=== PATIENT | male | born 1950 | race Hispanic/Latino ===

== ENCOUNTER 2021-10-12 17:14 | Inpatient (IN) | payer OTHER ==
[~2021-10-12] VITALS: Ht 152.4 cm; Wt 59.3 kg
[2021-10-12] MEDS ORDERED: 0.9%NACL 1000ML 1,000 ML IV ONE ×2 (17:30→18:30)
[2021-10-12 17:51] LABS: BASOPHILS % (AUTO) 0.2 % (0.0-5.0); HEMATOCRIT 40.8 % (42-54); LYMPHOCYTES % (AUTO) 3.7 % (21.0-51.0); MEAN CORPUSCULAR HEMOGLOBIN 31.4 pg (27.0-33.0); MEAN CORPUSCULAR HGB CONC 32.6 g/dL (32.0-36.0); MEAN CORPUSCULAR VOLUME 96.2 fL (79-99); MONOCYTES % (AUTO) 2.5 % (3.0-13.0); NEUTROPHILS % (AUTO) 93.2 % (40.0-77.0); PLATELET COUNT (AUTO) 205 K/uL (130-400); RED BLOOD CELL COUNT(AUTO) 4.24 MIL/uL (4.50-6.20); RED CELL DISTRIBUTION WIDTH 12.9 % (11.0-15.5); WHITE BLOOD COUNT (AUTO) 18.2 K/uL (4.8-10.8)
[2021-10-12 18:01] LABS: CREATININE 1.3 mg/dL (0.5-1.5); POTASSIUM 3.7 mmol/L (3.5-5.1)
[2021-10-12 18:05] LABS: ALBUMIN 3.2 g/dL (3.5-5.0); BILIRUBIN,TOTAL 0.6 mg/dL (0.2-1.0); TOTAL PROTEIN, SERUM 6.8 g/dL (6.0-8.3)
[2021-10-12 18:30] LABS: APPEARANCE,URINE Turbid (CLEAR); BILIRUBIN,URINE Small (NEGATIVE); COLOR,URINE Dark Yellow (YELLOW); GLUCOSE, URINE (UA) Negative (NEGATIVE); KETONES,URINE Trace mg/dL (NEGATIVE); LEUKOCYTE ESTERASE ,URINE Large (NEGATIVE); NITRATE,URINE Negative (NEGATIVE); OCCULT BLOOD,URINE Large (NEGATIVE); PROTEIN,URINE POS 1+ mg/dL (NEGATIVE)
[2021-10-12] MEDS ORDERED: ZOSYN 3.375GM +NS 50ML IV SCH (18:30)
[2021-10-12 18:45] LABS: BACTERIA,URINE Many /HPF (None Seen)
[2021-10-12 18:47] LABS: SQUAMOUS EPITHELIAL CELL,UR None Seen /HPF (0-2)
[2021-10-12] MEDS ORDERED: 0.9%NACL 50ML 50 ML IV ONE (18:49)
[2021-10-12 20:21] LABS: MAGNESIUM 1.8 mg/dL (1.80-2.40)
[2021-10-12] MEDS ORDERED: ACETAMINOPHEN 325 MG TAB PO PRN ×2 (20:30)
[2021-10-12] MEDS: 0.9%NACL 1000ML 1,000 ML IV SCH ×2 (20:30→21:31)
[2021-10-12] MEDS ORDERED: ONDANSETRON 4MG INJ IV PRN (20:30)
[2021-10-12] MEDS ORDERED: RENOVITE PO (20:38)
[2021-10-12] MEDS ORDERED: DIVA-76 PO (20:42)
[2021-10-12 20:46] LABS: INR 1.19 (0.85-1.15); PROTHROMBIN TIME 12.8 SEC (9.6-11.6)
[2021-10-12 20:47] LABS: PARTIAL THROMBOPLASTIN TIME 23.7 SEC (26.3-35.5)
[2021-10-12] MEDS ORDERED: SERTRALINE (20:47)
[2021-10-12] MEDS ORDERED: QUETIAPINE 100 MG (20:47)
[2021-10-12] MEDS ORDERED: TRAZADONE 100 MG (20:47)
[2021-10-12] MEDS ORDERED: DONEPEZIL 10 MG (20:48)
[2021-10-12] MEDS ORDERED: ATORVASTATIN 20 MG (20:49)
[2021-10-12] MEDS ORDERED: MEMANTINE 10 MG (20:49)
[2021-10-12] MEDS ORDERED: LEVO100C4 PO (20:51)
[2021-10-12] MEDS ORDERED: LISI1TAB51 PO (20:52)
[2021-10-12] MEDS: FAMOTIDINE 20MG VIAL IV SCH (21:00)
[2021-10-12] MEDS ORDERED: NOREPINEPHRIN 4MG/NS 250ML 250 ML IV ONE (21:08)
[2021-10-12] MEDS ORDERED: NACL 0.9% IV PRN (21:30)
[2021-10-12] MEDS ORDERED: EPINEPHRINE IV PRN (21:30)
[2021-10-12] MEDS ORDERED: NOREPINEPHRIN 4MG/NS 250ML 250 ML IV SCH (22:00)
[2021-10-13] VITALS (26 sets, daily range): BP systolic 83–119; BP diastolic 38–98
[2021-10-13] MEDS: MORPHINE 2 MG SYG IV PRN ×2 (01:37→05:24)
[2021-10-13] MEDS: ZOSYN 3.375GM+NS 50ML 50 ML IV SCH ×2 (02:30→10:46)
[2021-10-13] MEDS: 0.9%NACL 1000ML 1,000 ML IV SCH ×3 (03:10→10:43)
[2021-10-13 07:36] LABS: BASOPHILS % (AUTO) 0.2 % (0.0-5.0); HEMATOCRIT 37.6 % (42-54); LYMPHOCYTES % (AUTO) 2.4 % (21.0-51.0); MEAN CORPUSCULAR HEMOGLOBIN 31.3 pg (27.0-33.0); MEAN CORPUSCULAR VOLUME 94.9 fL (79-99); MONOCYTES % (AUTO) 4.2 % (3.0-13.0); NEUTROPHILS % (AUTO) 92.4 % (40.0-77.0); PLATELET COUNT (AUTO) 187 K/uL (130-400); RED BLOOD CELL COUNT(AUTO) 3.96 MIL/uL (4.50-6.20); RED CELL DISTRIBUTION WIDTH 13.3 % (11.0-15.5)
[2021-10-13 07:38] LABS: WHITE BLOOD COUNT (AUTO) 33.6 K/uL (4.8-10.8)
[2021-10-13 07:49] LABS: ALBUMIN 2.7 g/dL (3.5-5.0); BILIRUBIN,TOTAL 0.5 mg/dL (0.2-1.0); CREATININE 1.1 mg/dL (0.5-1.5); POTASSIUM 3.6 mmol/L (3.5-5.1); TOTAL PROTEIN, SERUM 6.1 g/dL (6.0-8.3)
[2021-10-13 08:22] LABS: BAND NEUTROPHILS % (MANUAL) 10 % (0-2); LYMPHOCYTES % (MANUAL) 5 % (22-44); MAN.DIFF COMMENT-IMPRESSION MANUAL DIFFERENTIAL; MONOCYTES % (MANUAL) 4 % (2-9); PLATELET MORPHOLOGY COMMENT ADEQUATE; SEGMENTED NEUTROPHILS % 81 % (40-70)
[2021-10-13 08:44] LABS: ERYTHROCYTE SEDIMENTATION RATE 9 MM/HR (0-20)
[2021-10-13] MEDS: FAMOTIDINE 20MG VIAL IV SCH (08:55)
[2021-10-13] MEDS ORDERED: LACTATED RINGERS 1000ML IV SCH (16:00)
[2021-10-13] MEDS: MEROPENEM 1 GM VIAL IVP SCH (16:55)
[2021-10-13] MEDS ORDERED: LIDOCAINE HCL-MPF 1% 2ML VIAL IV PRN (19:00)
[2021-10-13] MEDS ORDERED: POTASSIUM CHLORIDE 20MEQ/100ML 100 ML IV PRN (19:00)
[2021-10-13] MEDS ORDERED: KCL 20 MEQ ERTAB PO PRN (19:00)
[2021-10-13] MEDS: LACTATED RINGERS 1000ML 1,000 ML IV SCH ×2 (19:57→22:42)
[2021-10-13] MEDS: TRAZODONE HCL 100 MG TABLET PO SCH (20:39)
[2021-10-13] MEDS ORDERED: DiphenhydrAMINE HCL 50 MG/ML VIAL IM ONE (22:00)
[2021-10-13] MEDS ORDERED: DiphenhydrAMINE HCL 50 MG/ML VIAL ONE (23:24)
[2021-10-14] VITALS (76 sets, daily range): BP systolic 80–134; BP diastolic 31–72
[2021-10-14] MEDS: MEROPENEM 1 GM VIAL IVP SCH ×2 (00:03→07:55)
[2021-10-14 04:07] LABS: BASOPHILS % (AUTO) 0.1 % (0.0-5.0); EOSINOPHILS % (AUTO) 0.1 % (0.0-8.0); HEMATOCRIT 29.2 % (42-54); LYMPHOCYTES % (AUTO) 8.1 % (21.0-51.0); MEAN CORPUSCULAR HEMOGLOBIN 31.3 pg (27.0-33.0); MEAN CORPUSCULAR HGB CONC 32.9 g/dL (32.0-36.0); MEAN CORPUSCULAR VOLUME 95.1 fL (79-99); MONOCYTES % (AUTO) 4.2 % (3.0-13.0); NEUTROPHILS % (AUTO) 86.4 % (40.0-77.0); PLATELET COUNT (AUTO) 116 K/uL (130-400); RED BLOOD CELL COUNT(AUTO) 3.07 MIL/uL (4.50-6.20); RED CELL DISTRIBUTION WIDTH 13.3 % (11.0-15.5); WHITE BLOOD COUNT (AUTO) 14.8 K/uL (4.8-10.8)
[2021-10-14 04:27] LABS: ALBUMIN 2.1 g/dL (3.5-5.0); BILIRUBIN,TOTAL 0.3 mg/dL (0.2-1.0); CREATININE 0.8 mg/dL (0.5-1.5); MAGNESIUM 1.6 mg/dL (1.80-2.40); PHOSPHORUS 1.9 mg/dL (2.5-4.9); POTASSIUM 3.1 mmol/L (3.5-5.1); TOTAL PROTEIN, SERUM 5.2 g/dL (6.0-8.3)
[2021-10-14] MEDS: LACTATED RINGERS 1000ML 1,000 ML IV SCH ×3 (05:36→18:09)
[2021-10-14] MEDS: MIDODRINE HCL 5 MG TABLET PO SCH ×3 (05:36→21:44)
[2021-10-14] MEDS: POTASSIUM CHLORIDE 10% ELIXIR 20 MEQ/15 ML UDCUP PO PRN ×2 (05:36→10:59)
[2021-10-14] MEDS ORDERED: FAMOTIDINE 20MG TAB ONE (07:45)
[2021-10-14] MEDS: ENOXAPARIN SODIUM 40 MG/0.4 ML SYRINGE SQ SCH (07:54)
[2021-10-14] MEDS: FAMOTIDINE 20MG VIAL IV SCH (07:55)
[2021-10-14] MEDS: MAGNESIUM 2GM PREMIX 50ML 50 ML IV PRN (08:12)
[2021-10-14] MEDS ORDERED: QUET100T34 PO (10:17)
[2021-10-14] MEDS ORDERED: SERT-439 PO (10:17)
[2021-10-14] MEDS ORDERED: FOLI0.8T43 PO (10:17)
[2021-10-14] MEDS ORDERED: ATOR20TA65 PO (10:17)
[2021-10-14] MEDS ORDERED: DONE10TA43 PO (10:17)
[2021-10-14] MEDS ORDERED: MEMA10TA55 PO (10:17)
[2021-10-14] MEDS: QUETIAPINE FUMARATE 100 MG TAB PO SCH ×2 (10:36→20:22)
[2021-10-14] MEDS: LEVOTHYROXINE 100 MCG TABLET PO SCH (11:00)
[2021-10-14] MEDS: Vitamin B Complex/Vit C/Folic Acid PO SCH (11:00)
[2021-10-14] MEDS: DIVALPROEX SODIUM 250 MG TABLET.DR PO SCH (11:00)
[2021-10-14] MEDS: MEMANTINE HCL 5 MG TABLET PO SCH ×2 (11:01→20:22)
[2021-10-14] MEDS: SERTRALINE HCL 50 MG TABLET PO SCH (11:05)
[2021-10-14] MEDS: CEFTRIAXONE 1G VIAL IVP SCH (15:25)
[2021-10-14] MEDS: DONEPEZIL HCL 5 MG TAB PO SCH (20:22)
[2021-10-14] MEDS: ATORVASTATIN 20 MG TABLET PO SCH (20:22)
[2021-10-14] MEDS: TRAZODONE HCL 100 MG TABLET PO SCH (20:22)
[2021-10-15] VITALS (75 sets, daily range): BP systolic 83–128; BP diastolic 28–73
[2021-10-15] MEDS ORDERED: HALOPERIDOL INJ 5 MG/ML VIAL ONE (00:20)
[2021-10-15] MEDS ORDERED: HALOPERIDOL INJ 5 MG/ML VIAL IM ONE (00:30)
[2021-10-15] MEDS: LACTATED RINGERS 1000ML 1,000 ML IV SCH ×3 (00:36→17:27)
[2021-10-15 03:40] LABS: BASOPHILS % (AUTO) 0.4 % (0.0-5.0); EOSINOPHILS % (AUTO) 0.5 % (0.0-8.0); LYMPHOCYTES % (AUTO) 19.6 % (21.0-51.0); MEAN CORPUSCULAR HEMOGLOBIN 30.9 pg (27.0-33.0); MEAN CORPUSCULAR HGB CONC 32.3 g/dL (32.0-36.0); MEAN CORPUSCULAR VOLUME 95.5 fL (79-99); MONOCYTES % (AUTO) 5.4 % (3.0-13.0); NEUTROPHILS % (AUTO) 73.6 % (40.0-77.0); PLATELET COUNT (AUTO) 109 K/uL (130-400); RED BLOOD CELL COUNT(AUTO) 3.14 MIL/uL (4.50-6.20); WHITE BLOOD COUNT (AUTO) 8.5 K/uL (4.8-10.8)
[2021-10-15 04:04] LABS: ALBUMIN 2.1 g/dL (3.5-5.0); BILIRUBIN,TOTAL 0.2 mg/dL (0.2-1.0); CREATININE 0.7 mg/dL (0.5-1.5); POTASSIUM 3.7 mmol/L (3.5-5.1); TOTAL PROTEIN, SERUM 5.2 g/dL (6.0-8.3)
[2021-10-15] MEDS ORDERED: FAMOTIDINE 20MG TAB ONE (08:48)
[2021-10-15] MEDS: Vitamin B Complex/Vit C/Folic Acid PO SCH (08:52)
[2021-10-15] MEDS: DIVALPROEX SODIUM 250 MG TABLET.DR PO SCH (08:52)
[2021-10-15] MEDS: SERTRALINE HCL 50 MG TABLET PO SCH (08:52)
[2021-10-15] MEDS: LEVOTHYROXINE 100 MCG TABLET PO SCH (08:52)
[2021-10-15] MEDS: POTASSIUM CHLORIDE 10% ELIXIR 20 MEQ/15 ML UDCUP PO PRN (08:52)
[2021-10-15] MEDS: MIDODRINE HCL 5 MG TABLET PO SCH ×3 (08:52→22:33)
[2021-10-15] MEDS: MEMANTINE HCL 5 MG TABLET PO SCH ×2 (08:52→20:43)
[2021-10-15] MEDS: FAMOTIDINE 20MG VIAL IV SCH (08:53)
[2021-10-15] MEDS: QUETIAPINE FUMARATE 100 MG TAB PO SCH ×2 (09:00→20:43)
[2021-10-15] MEDS: ENOXAPARIN SODIUM 40 MG/0.4 ML SYRINGE SQ SCH (09:00)
[2021-10-15] MEDS: METRONIDAZOLE 500MG/100ML BAG 100 ML IVPB SCH ×2 (09:49→17:27)
[2021-10-15] MEDS: CEFTRIAXONE 1G VIAL IVP SCH (14:42)
[2021-10-15] MEDS: DONEPEZIL HCL 5 MG TAB PO SCH (20:43)
[2021-10-15] MEDS: ATORVASTATIN 20 MG TABLET PO SCH (20:43)
[2021-10-15] MEDS: TRAZODONE HCL 100 MG TABLET PO SCH (20:43)
[2021-10-16] VITALS (77 sets, daily range): BP systolic 82–138; BP diastolic 36–76
[2021-10-16] MEDS: LACTATED RINGERS 1000ML 1,000 ML IV SCH (01:26)
[2021-10-16] MEDS: METRONIDAZOLE 500MG/100ML BAG 100 ML IVPB SCH ×3 (01:29→18:16)
[2021-10-16 04:40] LABS: BASOPHILS % (AUTO) 0.8 % (0.0-5.0); EOSINOPHILS % (AUTO) 1.5 % (0.0-8.0); HEMATOCRIT 32.7 % (42-54); LYMPHOCYTES % (AUTO) 37.9 % (21.0-51.0); MEAN CORPUSCULAR HGB CONC 32.7 g/dL (32.0-36.0); MEAN CORPUSCULAR VOLUME 94.8 fL (79-99); MONOCYTES % (AUTO) 9.7 % (3.0-13.0); NEUTROPHILS % (AUTO) 49.8 % (40.0-77.0); PLATELET COUNT (AUTO) 110 K/uL (130-400); RED BLOOD CELL COUNT(AUTO) 3.45 MIL/uL (4.50-6.20); RED CELL DISTRIBUTION WIDTH 12.8 % (11.0-15.5); WHITE BLOOD COUNT (AUTO) 3.9 K/uL (4.8-10.8)
[2021-10-16 05:00] LABS: CREATININE 0.7 mg/dL (0.5-1.5); POTASSIUM 3.7 mmol/L (3.5-5.1)
[2021-10-16] MEDS: LEVOTHYROXINE 100 MCG TABLET PO SCH (06:17)
[2021-10-16] MEDS: MIDODRINE HCL 5 MG TABLET PO SCH ×3 (06:17→20:17)
[2021-10-16] MEDS: FAMOTIDINE 20MG VIAL IV SCH (09:00)
[2021-10-16] MEDS: SERTRALINE HCL 50 MG TABLET PO SCH (09:10)
[2021-10-16] MEDS: MEMANTINE HCL 5 MG TABLET PO SCH ×2 (09:10→20:17)
[2021-10-16] MEDS: Vitamin B Complex/Vit C/Folic Acid PO SCH (09:11)
[2021-10-16] MEDS: DIVALPROEX SODIUM 250 MG TABLET.DR PO SCH (09:11)
[2021-10-16] MEDS: QUETIAPINE FUMARATE 100 MG TAB PO SCH ×2 (09:11→20:17)
[2021-10-16] MEDS: CEFTRIAXONE 1G VIAL IVP SCH (13:50)
[2021-10-16] MEDS: TRAZODONE HCL 100 MG TABLET PO SCH (20:17)
[2021-10-16] MEDS: DONEPEZIL HCL 5 MG TAB PO SCH (20:17)
[2021-10-16] MEDS: ATORVASTATIN 20 MG TABLET PO SCH (20:17)
[2021-10-17] VITALS (69 sets, daily range): BP systolic 78–133; BP diastolic 42–75
[2021-10-17] MEDS: METRONIDAZOLE 500MG/100ML BAG 100 ML IVPB SCH ×3 (01:36→17:04)
[2021-10-17 03:47] LABS: EOSINOPHILS % (AUTO) 2.3 % (0.0-8.0); HEMATOCRIT 33.2 % (42-54); LYMPHOCYTES % (AUTO) 42.8 % (21.0-51.0); MEAN CORPUSCULAR HEMOGLOBIN 30.5 pg (27.0-33.0); MEAN CORPUSCULAR HGB CONC 31.9 g/dL (32.0-36.0); MEAN CORPUSCULAR VOLUME 95.7 fL (79-99); MONOCYTES % (AUTO) 8.9 % (3.0-13.0); NEUTROPHILS % (AUTO) 44.7 % (40.0-77.0); PLATELET COUNT (AUTO) 88 K/uL (130-400); RED BLOOD CELL COUNT(AUTO) 3.47 MIL/uL (4.50-6.20); RED CELL DISTRIBUTION WIDTH 12.5 % (11.0-15.5)
[2021-10-17 04:11] LABS: ALBUMIN 2.2 g/dL (3.5-5.0); BILIRUBIN,TOTAL 0.2 mg/dL (0.2-1.0); CREATININE 0.7 mg/dL (0.5-1.5); MAGNESIUM 1.7 mg/dL (1.80-2.40); PHOSPHORUS 2.7 mg/dL (2.5-4.9); POTASSIUM 3.7 mmol/L (3.5-5.1); TOTAL PROTEIN, SERUM 5.4 g/dL (6.0-8.3)
[2021-10-17] MEDS: MIDODRINE HCL 5 MG TABLET PO SCH ×3 (05:05→20:13)
[2021-10-17] MEDS: POTASSIUM CHLORIDE 10% ELIXIR 20 MEQ/15 ML UDCUP PO PRN (05:05)
[2021-10-17] MEDS: MAGNESIUM 2GM PREMIX 50ML 50 ML IV PRN (05:08)
[2021-10-17 05:45] LABS: BAND NEUTROPHILS % (MANUAL) 1 % (0-2); EOSINOPHILS % (MANUAL) 3 % (1-6); LYMPHOCYTES % (MANUAL) 32 % (22-44); MAN.DIFF COMMENT-IMPRESSION MANUAL DIFFERENTIAL; PLATELET MORPHOLOGY COMMENT SLIGHTLY DECREASED; SEGMENTED NEUTROPHILS % 64 % (40-70)
[2021-10-17] MEDS: SERTRALINE HCL 50 MG TABLET PO SCH (09:14)
[2021-10-17] MEDS: MEMANTINE HCL 5 MG TABLET PO SCH ×2 (09:14→20:12)
[2021-10-17] MEDS: QUETIAPINE FUMARATE 100 MG TAB PO SCH (09:15)
[2021-10-17] MEDS: FAMOTIDINE 20MG VIAL IV SCH (09:15)
[2021-10-17] MEDS: Vitamin B Complex/Vit C/Folic Acid PO SCH (09:15)
[2021-10-17] MEDS ORDERED: PHARMACY COMMUNICATION MISC SCH (09:30)
[2021-10-17] MEDS: CEFTRIAXONE 1G VIAL IVP SCH (13:08)
[2021-10-17] MEDS ORDERED: CEFTRIAXONE 2GM VIAL IVP SCH (14:30)
[2021-10-17] MEDS ORDERED: LACTATED RINGERS 1000ML IV ONE (14:30)
[2021-10-17] MEDS: ATORVASTATIN 20 MG TABLET PO SCH (20:12)
[2021-10-17] MEDS: DONEPEZIL HCL 5 MG TAB PO SCH (20:12)
[2021-10-18] VITALS (26 sets, daily range): BP systolic 120–159; BP diastolic 56–102
[2021-10-18 03:50] LABS: BASOPHILS % (AUTO) 0.8 % (0.0-5.0); EOSINOPHILS % (AUTO) 2.1 % (0.0-8.0); HEMATOCRIT 33.7 % (42-54); LYMPHOCYTES % (AUTO) 38.1 % (21.0-51.0); MEAN CORPUSCULAR HEMOGLOBIN 30.9 pg (27.0-33.0); MEAN CORPUSCULAR HGB CONC 33.2 g/dL (32.0-36.0); MEAN CORPUSCULAR VOLUME 92.8 fL (79-99); MONOCYTES % (AUTO) 8.9 % (3.0-13.0); NEUTROPHILS % (AUTO) 49.6 % (40.0-77.0); PLATELET COUNT (AUTO) 147 K/uL (130-400); RED BLOOD CELL COUNT(AUTO) 3.63 MIL/uL (4.50-6.20); RED CELL DISTRIBUTION WIDTH 12.5 % (11.0-15.5); WHITE BLOOD COUNT (AUTO) 3.8 K/uL (4.8-10.8)
[2021-10-18 04:06] LABS: ALBUMIN 2.3 g/dL (3.5-5.0); BILIRUBIN,TOTAL 0.3 mg/dL (0.2-1.0); CREATININE 0.7 mg/dL (0.5-1.5); POTASSIUM 3.6 mmol/L (3.5-5.1); TOTAL PROTEIN, SERUM 5.5 g/dL (6.0-8.3)
[2021-10-18] MEDS: MIDODRINE HCL 5 MG TABLET PO SCH ×2 (05:40→13:59)
[2021-10-18] MEDS: METRONIDAZOLE 500MG/100ML BAG 100 ML IVPB SCH ×3 (05:40→22:26)
[2021-10-18] MEDS: MEMANTINE HCL 5 MG TABLET PO SCH ×2 (08:22→20:37)
[2021-10-18] MEDS: Vitamin B Complex/Vit C/Folic Acid PO SCH (08:22)
[2021-10-18] MEDS: VALPROATE SOD 250 MG/5 ML (PO) PO SCH (08:22)
[2021-10-18] MEDS: CEFTRIAXONE 2GM VIAL IVP SCH (08:22)
[2021-10-18] MEDS: SERTRALINE HCL 50 MG TABLET PO SCH (08:22)
[2021-10-18] MEDS: FAMOTIDINE 20MG TAB PO SCH (08:41)
[2021-10-18] MEDS: POTASSIUM CHLORIDE 10% ELIXIR 20 MEQ/15 ML UDCUP PO PRN ×2 (18:41→18:42)
[2021-10-18] MEDS: DONEPEZIL HCL 5 MG TAB PO SCH (20:36)
[2021-10-18] MEDS: ATORVASTATIN 20 MG TABLET PO SCH (20:37)
[2021-10-19] VITALS (7 sets, daily range): BP systolic 109–139; BP diastolic 55–82
[2021-10-19 04:12] LABS: HEMATOCRIT 33.5 % (42-54); MEAN CORPUSCULAR HEMOGLOBIN 30.6 pg (27.0-33.0); MEAN CORPUSCULAR HGB CONC 33.1 g/dL (32.0-36.0); MEAN CORPUSCULAR VOLUME 92.3 fL (79-99); RED BLOOD CELL COUNT(AUTO) 3.63 MIL/uL (4.50-6.20); RED CELL DISTRIBUTION WIDTH 12.3 % (11.0-15.5)
[2021-10-19 04:33] LABS: ALBUMIN 2.5 g/dL (3.5-5.0); CREATININE 0.7 mg/dL (0.5-1.5); MAGNESIUM 1.7 mg/dL (1.80-2.40); POTASSIUM 3.8 mmol/L (3.5-5.1)
[2021-10-19] MEDS ORDERED: METRONIDAZOLE 500 MG TABLET ONE (04:42)
[2021-10-19] MEDS: METRONIDAZOLE 500 MG TABLET PO SCH ×3 (04:44→21:05)
[2021-10-19] MEDS: MAGNESIUM 2GM PREMIX 50ML 50 ML IV PRN (04:44)
[2021-10-19] MEDS: MIDODRINE HCL 5 MG TABLET PO SCH ×3 (04:44→22:00)
[2021-10-19] MEDS: VALPROATE SOD 250 MG/5 ML (PO) PO SCH (10:22)
[2021-10-19] MEDS: CEFTRIAXONE 2GM VIAL IVP SCH (10:22)
[2021-10-19] MEDS: Vitamin B Complex/Vit C/Folic Acid PO SCH (10:22)
[2021-10-19] MEDS: MEMANTINE HCL 5 MG TABLET PO SCH ×2 (10:23→21:04)
[2021-10-19] MEDS: FAMOTIDINE 20MG TAB PO SCH (10:23)
[2021-10-19] MEDS: SERTRALINE HCL 50 MG TABLET PO SCH (10:24)
[2021-10-19] MEDS: ATORVASTATIN 20 MG TABLET PO SCH (21:04)
[2021-10-19] MEDS: DONEPEZIL HCL 5 MG TAB PO SCH (21:05)
[2021-10-20] VITALS (7 sets, daily range): BP systolic 116–134; BP diastolic 57–75
[2021-10-20 04:17] LABS: HEMATOCRIT 33.3 % (42-54); MEAN CORPUSCULAR HEMOGLOBIN 30.9 pg (27.0-33.0); MEAN CORPUSCULAR HGB CONC 33.6 g/dL (32.0-36.0); RED BLOOD CELL COUNT(AUTO) 3.62 MIL/uL (4.50-6.20); RED CELL DISTRIBUTION WIDTH 12.5 % (11.0-15.5); WHITE BLOOD COUNT (AUTO) 4.5 K/uL (4.8-10.8)
[2021-10-20 04:28] LABS: CREATININE 0.8 mg/dL (0.5-1.5); POTASSIUM 4.2 mmol/L (3.5-5.1)
[2021-10-20] MEDS: MIDODRINE HCL 5 MG TABLET PO SCH ×3 (05:11→22:00)
[2021-10-20] MEDS: METRONIDAZOLE 500 MG TABLET PO SCH ×3 (05:11→19:59)
[2021-10-20] MEDS: MAGNESIUM 2GM PREMIX 50ML 50 ML IV PRN (05:40)
[2021-10-20] MEDS: MEMANTINE HCL 5 MG TABLET PO SCH ×2 (09:08→20:00)
[2021-10-20] MEDS: FAMOTIDINE 20MG TAB PO SCH (09:08)
[2021-10-20] MEDS: CEFTRIAXONE 2GM VIAL IVP SCH (09:08)
[2021-10-20] MEDS: SERTRALINE HCL 50 MG TABLET PO SCH (09:08)
[2021-10-20] MEDS: Vitamin B Complex/Vit C/Folic Acid PO SCH (09:08)
[2021-10-20] MEDS: VALPROATE SOD 250 MG/5 ML (PO) PO SCH (09:10)
[2021-10-20] MEDS: DONEPEZIL HCL 5 MG TAB PO SCH (20:00)
[2021-10-20] MEDS: ATORVASTATIN 20 MG TABLET PO SCH (20:00)
[2021-10-21 04:00] VITALS: BP 131/70
[2021-10-21] MEDS: METRONIDAZOLE 500 MG TABLET PO SCH ×2 (05:28→11:33)
[2021-10-21] MEDS: MIDODRINE HCL 5 MG TABLET PO SCH ×2 (06:00→11:34)
[2021-10-21 08:00] VITALS: BP 152/86
[2021-10-21] MEDS: MEMANTINE HCL 5 MG TABLET PO SCH (09:20)
[2021-10-21] MEDS: SERTRALINE HCL 50 MG TABLET PO SCH (09:20)
[2021-10-21] MEDS: VALPROATE SOD 250 MG/5 ML (PO) PO SCH (09:20)
[2021-10-21] MEDS: CEFTRIAXONE 2GM VIAL IVP SCH (09:20)
[2021-10-21] MEDS: FAMOTIDINE 20MG TAB PO SCH (09:20)
[2021-10-21] MEDS: Vitamin B Complex/Vit C/Folic Acid PO SCH (09:20)
[2021-10-21 12:00] VITALS: BP 163/85
== END 2021-10-21 15:15 | DRG 871 ==
LOC: EDH 17:14 → EDHIP 20:13 → 2BH 10-13 14:50 → 2AH 10-16 13:24 → 2BH 10-16 13:30 → 4BH 10-18 21:47
PROVIDERS: ADMIT Hospitalist; ATTEND Hospitalist
PROC: 0W980ZZ Drainage of Chest Wall, Open Approach (ICD-10-PCS; principal; 2021-10-14)
DX: A41.51 Sepsis due to Escherichia coli [E. coli] (principal); R65.21 Severe sepsis with septic shock; R53.2 Functional quadriplegia; N39.0 Urinary tract infection, site not specified; E44.0 Moderate protein-calorie malnutrition; L02.213 Cutaneous abscess of chest wall; G45.9 Transient cerebral ischemic attack, unspecified; N17.9 Acute kidney failure, unspecified; E83.42 Hypomagnesemia; E83.51 Hypocalcemia; E88.09 Other disorders of plasma-protein metabolism, not elsewhere classified; G30.9 Alzheimer's disease, unspecified; I10 Essential (primary) hypertension; I25.10 Atherosclerotic heart disease of native coronary artery without angina pectoris; E03.9 Hypothyroidism, unspecified; D72.810 Lymphocytopenia; E86.0 Dehydration; B96.20 Unspecified Escherichia coli [E. coli] as the cause of diseases classified elsewhere; E87.6 Hypokalemia; N32.89 Other specified disorders of bladder; Z95.1 Presence of aortocoronary bypass graft; Z68.25 Body mass index [BMI] 25.0-25.9, adult; Z20.822 Contact with and (suspected) exposure to COVID-19; K52.9 Noninfective gastroenteritis and colitis, unspecified; Z87.891 Personal history of nicotine dependence; K59.00 Constipation, unspecified; R53.81 Other malaise; D69.6 Thrombocytopenia, unspecified; R13.12 Dysphagia, oropharyngeal phase; Z74.01 Bed confinement status; F32.A Depression, unspecified; F02.80 Dementia in other diseases classified elsewhere, unspecified severity, without behavioral disturbance, psychotic disturbance, mood disturbance, and anxiety
CPT/HCPCS: 36415; 71045; 74018; 74176; 74230; 80048; 80053; 81001; 82040; 82140; 82270; 82550; 82948; 83605; 83630; 83690; 83735; 83880; 84100; 84145; 84443; 84484; 85025; 85027; 85610; 85651; 85730; 87040; 87046; 87070; 87076; 87077; 87088; 87186; 87324; 87507; 87635; 87804; 92526; 92610; 92611; 93005; 97039; 99291; G0378; J0696; J1200; J1630; J1650; J2185; J2543; J3475; J3490; J7030; J7120